=== PATIENT | female | born 1945 ===

== ENCOUNTER 2018-12-04 10:20 | Outpatient (CLI) | payer MEDICARE | END 2018-12-04 10:21 | disposition home or self-care (01) | LOC: C.DEXAIC 10:20 | DX: Z01.89 Encounter for other specified special examinations (principal); M25.561 Pain in right knee; M25.562 Pain in left knee; M85.88 Other specified disorders of bone density and structure, other site; M17.0 Bilateral primary osteoarthritis of knee ==